=== PATIENT | female | born 1990 ===

== ENCOUNTER 2019-11-01 07:55 | Inpatient (IN) | payer OTHER ==
--- NOTE | 2019-11-01 09:09 | HP ---
Past Medical History - Admission History Source: Patient Limitations to Obtaining History: No Limitations - Past Medical History ...: 1 ...Para: 0 ...EDC by Dates: 10/29/19 - Past Surgical History Past Surgical History: Yes: None Hx Myomectomy: No Hx Transabdominal Cerclage: No - Smoking History Have you smoked in the past 12 months: No - Alcohol/Substance Use Hx Alcohol Use: No History of Substance Use: reports: None - Social History Usual Living Arrangement: Yes: With Spouse Do you think of yourself as: Straight/Heterosexual ADL: Independent History of Recent Travel: No Home Medications - Allergies Allergies/Adverse Reactions: Allergies Allergy/AdvReac Type Severity Reaction Status Date / Time No Known Allergies Allergy Verified 11/01/19 09:07 Family Medical History Family History: Denies Review of Systems - Review of Systems Constitutional: reports: No Symptoms Eyes: reports: No Symptoms HENT: reports: No Symptoms Neck: reports: No Symptoms Cardiovascular: reports: No Symptoms Respiratory: reports: No Symptoms Gastrointestinal: reports: No Symptoms Genitourinary: reports: No Symptoms Breasts: reports: No Symptoms Reported Musculoskeletal: reports: No Symptoms Integumentary: reports: No Symptoms Neurological: reports: No Symptoms Endocrine: reports: No Symptoms Hematology/Lymphatic: reports: No Symptoms Psychiatric: reports: No Symptoms Physical Exam - Maternity Constitutional: Yes: Well Nourished, No Distress, Calm Eyes: Yes: WNL, Conjunctiva Clear, EOM Intact HENT: Yes: WNL, Atraumatic, Normocephalic Neck: Yes: WNL, Supple, Trachea Midline Cardiovascular: Yes: WNL, Regular Rate and Rhythm Breast(s): Yes: WNL - Abdominal Exam/OB Number of Fetuses: Single Presentation: Vertex Contractions: No Intensity: Unaware Monitor Mode: External Category: I Accelerations: Uniform Decelerations: None - Vaginal Exam/OB Vaginal Bleeding: No Speculum Exam: No Amniotic Membrane Status: Intact Presentation: Vertex/Position Station: -2 - Physical Exam Musculoskeletal: Yes: WNL Extremities: Yes: WNL Edema: No Integumentary: Yes: WNL ...Motor Strength: WNL Psychiatric: Yes: WNL Assessment/Plan IUP at 40 + weeks plan induction of labor
[2019-11-01] MEDS ORDERED: ELECTROLYTE-148 SOLN 1,000 ML IV SCH (09:15)
[2019-11-01 09:32] VITALS: BMI 37.4
[2019-11-01] MEDS ORDERED: DINOPROSTONE 10 MG VAGINAL SUPPOSITORY VG ONE (09:45)
[2019-11-01 10:39] LABS: BASO % 0.3 % (0-2.0); EOS % 1.9 % (0-4.5); HEMATOCRIT 38.3 % (32.4-45.2); HEMOGLOBIN 13.2 GM/dL (10.7-15.3); LYMPH % 26.4 % (8-40); MCH 31.9 pg (25.7-33.7); MCHC 34.4 g/dl (32.0-36.0); MEAN CELL VOLUME 92.8 fl (80-96); MEAN PLT VOLUME 7.2 fl (7.5-11.1); MONO % 9.2 % (3.8-10.2); NEUT % 62.2 % (42.8-82.8); PLATELET COUNT 469 K/MM3 (134-434); RBC 4.12 M/mm3 (3.60-5.2); RDW 13.4 % (11.6-15.6); WHITE BLOOD COUNT 8.4 K/mm3 (4.0-10.0)
[2019-11-01 10:49] LABS: INR 0.93 (0.83-1.09)
[2019-11-01 10:52] LABS: ACTIVATED PTT 26.8 SECONDS (25.2-36.5)
[2019-11-01 11:05] LABS: BLOOD UREA NITROGEN 10.7 mg/dL (7-18); CALCIUM 8.9 mg/dL (8.5-10.1); CREATININE 0.6 mg/dL (0.55-1.3); POTASSIUM 4.1 mmol/L (3.5-5.1)
[2019-11-01] MEDS ORDERED: AMPICILLIN SODIUM 2 GM VIAL ONE (13:24)
[2019-11-01] MEDS ORDERED: AMPICILLIN - 2 GM in SODIUM CHLORIDE 100 ML IVPB ONE (14:00)
[2019-11-01] MEDS ORDERED: OXYTOCIN 30 UNITS in 0.9% NS 30 UNIT/500 ML INFUS.BAG IVPB ONE (14:22)
[2019-11-01] MEDS ORDERED: PROMETHAZINE HCL 25 MG/1 ML VIAL IVPB ONE (14:25)
[2019-11-01] MEDS ORDERED: BUTORPHANOL TARTRATE 1 MG/ML VIAL IVPB ONE (14:25)
--- NOTE | 2019-11-01 14:26 | PN ---
Progress Note (short form) - Note Progress Note: cervix 1-2 cm 80% effaced vertex -2 AROM tracing reactive with good variability accelerations no decelerations category I at 140 bpm . plan oxytocin augmentation.
[2019-11-01] MEDS ORDERED: OXYTOCIN 30 UNITS in 0.9% NS 30 UNIT/500 ML INFUS.BAG IVPB SCH (14:30)
[2019-11-01] MEDS ORDERED: AMPICILLIN SODIUM 1 GM VIAL ONE ×2 (17:11→21:20)
[2019-11-01] MEDS: AMPICILLIN - 1 GM in SODIUM CHLORIDE 100 ML IVPB SCH ×2 (17:29→21:30)
[2019-11-01] MEDS ORDERED: PCA PUMP NR ONE ×2 (17:42→23:46)
[2019-11-01] MEDS ORDERED: FENTANYL/BUPIVACAINE/NS/PF - PCEA - 50 ML DISP.SYRIN EP ONE (17:43)
[2019-11-01] MEDS ORDERED: NALOXONE HCL 0.4 MG/ML VIAL IVPUSH PRN (18:35)
[2019-11-01] MEDS ORDERED: BUPIVACAINE HCL/PF 0.25% (2.5MG/ML) 10 ML VIAL ONE (18:37)
[2019-11-01] MEDS ORDERED: FENTANYL/BUPIVACAINE/NS/PF - PCEA - 50 ML DISP.SYRIN EP SCH (18:45)
[2019-11-01] MEDS ORDERED: OXYTOCIN 20 UNITS in 0.9% NS 20 UNIT/1,000 ML INFUS.BAG IV ONE ×2 (21:51→22:57)
[2019-11-01] MEDS ORDERED: WITCH HAZEL 50% (TUCKS) 40 PAD/JAR PAD TP PRN (22:28)
[2019-11-01] MEDS ORDERED: METHYLERGONOVINE MALEATE 0.2 MG/1 ML AMP IM PRN (22:28)
[2019-11-01] MEDS ORDERED: BENZOCAINE 20% 57 GM BOTTLE TP PRN (22:28)
[2019-11-01] MEDS ORDERED: BISACODYL 10 MG SUPP.RECT RC PRN (22:28)
[2019-11-01] MEDS ORDERED: BENZOCAINE 28 GM HEMORRHOIDAL OINTMENT TP PRN (22:28)
--- NOTE | 2019-11-01 22:28 | PN ---
Delivery - Delivery Vaginal Delivery: No Problems Type of Anesthesia: Local, Epidural Episiotomy/Laceration: 2nd degree EBL (cc): 300 Delivery, Single - [place] Feeding Plan Initial Plan: Elected not to breastfeed exclusively throughout hospitalization
[2019-11-01] MEDS ORDERED: OXYTOCIN 20 UNITS in 0.9% NS 20 UNIT/1,000 ML INFUS.BAG IV SCH (22:30)
[2019-11-01] MEDS ORDERED: IBUPROFEN 600 MG TABLET (FP) PO ONE (23:35)
[2019-11-01] MEDS ORDERED: ACETAMINOPHEN 325 MG TABLET (FP) ONE (23:36)
[2019-11-02] MEDS: ACETAMINOPHEN 325 MG TABLET (FP) PO PRN ×3 (05:10→21:39)
[2019-11-02] MEDS: IBUPROFEN 600 MG TABLET (FP) PO PRN ×3 (05:11→21:39)
[2019-11-02] MEDS: AMPICILLIN - 1 GM in SODIUM CHLORIDE 100 ML IVPB SCH (07:30)
[2019-11-02 08:32] LABS: BASO % 0.1 % (0-2.0); EOS % 0.2 % (0-4.5); HEMATOCRIT 34.8 % (32.4-45.2); HEMOGLOBIN 11.9 GM/dL (10.7-15.3); LYMPH % 13.2 % (8-40); MCHC 34.4 g/dl (32.0-36.0); MEAN CELL VOLUME 93.1 fl (80-96); MEAN PLT VOLUME 7.2 fl (7.5-11.1); MONO % 7.3 % (3.8-10.2); NEUT % 79.2 % (42.8-82.8); PLATELET COUNT 420 K/MM3 (134-434); RBC 3.73 M/mm3 (3.60-5.2); RDW 13.4 % (11.6-15.6); WHITE BLOOD COUNT 17.3 K/mm3 (4.0-10.0)
--- NOTE | 2019-11-02 09:06 | PN ---
Progress Note (short form) - Note Progress Note: pt. overall feels well. tolerating diet, ambulating. states has some soreness in lower back and would like an ice pack. vss - af abd: soft, nt, nd, fundus firm back : no abnormalities noted. no cva tenderness. ve: intact, min lochia ext: no calf tenderness b/l a/p ppd 1 s/p pt. stable analgesia prn ice pack to back check cbc this am
[2019-11-02] MEDS: PRENATAL VITAMINS W/ FOLIC ACID TABLET (FP) PO SCH (09:27)
[2019-11-02] MEDS: FERROUS SO4 325 MG TABLET (FP) PO SCH ×3 (09:27→17:16)
[2019-11-02] MEDS ORDERED: SENNOSIDES/DOCUSATE COMBO (SENNA PLUS) TABLET (UD) PO PRN (22:00)
[2019-11-03 08:40] LABS: BASO % 0.3 % (0-2.0); HEMATOCRIT 33.5 % (32.4-45.2); HEMOGLOBIN 11.2 GM/dL (10.7-15.3); LYMPH % 20.6 % (8-40); MCH 31.6 pg (25.7-33.7); MCHC 33.5 g/dl (32.0-36.0); MEAN CELL VOLUME 94.3 fl (80-96); MEAN PLT VOLUME 7.1 fl (7.5-11.1); MONO % 6.4 % (3.8-10.2); NEUT % 70.7 % (42.8-82.8); PLATELET COUNT 450 K/MM3 (134-434); RBC 3.56 M/mm3 (3.60-5.2); RDW 13.8 % (11.6-15.6); WHITE BLOOD COUNT 13.5 K/mm3 (4.0-10.0)
[2019-11-03] MEDS: PRENATAL VITAMINS W/ FOLIC ACID TABLET (FP) PO SCH (09:16)
[2019-11-03] MEDS: IBUPROFEN 600 MG TABLET (FP) PO PRN (09:16)
[2019-11-03] MEDS: FERROUS SO4 325 MG TABLET (FP) PO SCH ×2 (09:16→12:30)
[2019-11-03] MEDS: ACETAMINOPHEN 325 MG TABLET (FP) PO PRN (09:17)
--- NOTE | 2019-11-03 09:43 | PN ---
Progress Note (short form) - Note Progress Note: Patient without complaints, asymptomatic Vs wnl [id number] Abdomen soft- uterus well contracted Normal lochial flow no calf tenderness A/P- PPD#@ s/p vaginal delivery Discharge home with instructions
--- NOTE | 2019-11-03 09:49 | DS ---
Physical Exam-[employer] Vital Signs: Vital Signs Temperature 97.8 F 11/02/19 21:00 Pulse Rate 80 11/02/19 21:00 Respiratory Rate 18 11/02/19 21:00 Blood Pressure 101/69 11/02/19 21:00 O2 Sat by Pulse Oximetry (%) 99 11/02/19 17:00 Constitutional: Yes: Well Nourished Cardiovascular: Yes: WNL Respiratory: Yes: WNL Gastrointestinal: Yes: WNL ....Post : Yes: Uterus firm Breast(s): Yes: WNL Musculoskeletal: Yes: WNL Extremities: Yes: WNL Edema: No Labs: CBC, BMP 11/03/19 07:55 11/01/19 10:00 Delivery - Delivery Vaginal Delivery: No Problems Type of Anesthesia: Epidural Episiotomy/Laceration: 2nd degree EBL (cc): 300 Delivery, Single - Stages of Labor Date 1st Stage Initiatied: 11/01/19 Time 1st Stage Initiated: 19:00 Date 2nd Stage Initiated: 11/01/19 Time 2nd Stage Initiated: 21:46 Date of Delivery: 11/01/19 Time of Delivery: 21:15 Time Placenta Delivered: 21:20 - Condition of Infant C Programmer/Collar Stay Fuser Tender Present: No Infant Gender: Female Weight: 3.203 kg Position: OA Total Hours ROM (Hrs/Mins): 8h10m - 1 Minute Total Score: 6 5 Minutes Total Score: 9 - Feeding Plan Initial Plan: Elected not to breastfeed exclusively throughout hospitalization Remarks - Remarks Remarks: PPD#@ s/p vaginal delivery discharge home on ibuprofen and colace Discharge Summary Problems reviewed: Yes Reason For Visit: INDUCTION OF LABOR Procedures: Principal: Hospital Course: s/p vaginal delivery Plan of Treatment: Discharge home with instructions Home on Ibuprofen and colace Follow up at Dr Burton's office in 1 week and 6 weeks To ER if fever>100.4, severe vaginal bleeding any pain severe abdominal pain or any unusual symptoms No sex, nothing in vagina, no tampons, no tub baths Condition: Stable - Instructions Diet, Activity, Other Instructions: regular diet Discharge home with instructions Home on Ibuprofen and colace Follow up at Dr Burton's office in 1 week and 6 weeks To ER if fever>100.4, severe vaginal bleeding any pain severe abdominal pain or any unusual symptoms No sex, nothing in vagina, no tampons, no tub baths Disposition: HOME - Home Medications Comprehensive Discharge Medication List: Ambulatory Orders Vitamins (Sjr) - 1 tab PO DAILY 11/01/19 Prescription Drug Monitoring Program (I-STOP) results: I-STOP not reviewed
[2019-11-03] MEDS ORDERED: PATIENT'S OWN MEDICATION (NON-FORMULARY) (Prenatal Vitamins (Sjr) - 1 TAB) PO SCH (10:00)
[2019-11-03 10:14] VITALS: BP 105/70; PULSE 101; TEMP 97.9
== END 2019-11-03 13:00 | disposition home or self-care (01) | DRG 560 ==
LOC: JLDR 07:55 → J3W 11-02 01:00
PROVIDERS: ADMIT Specialist; ATTEND Specialist
PROC: 10E0XZZ Delivery of Products of Conception, External Approach (ICD-10-PCS; principal; 2019-11-01)
PROC: 10907ZC Drainage of Amniotic Fluid, Therapeutic from Products of Conception, Via Natural or Artificial Opening (ICD-10-PCS; 2019-11-01)
DX: O48.0 Post-term pregnancy (principal); O70.1 Second degree perineal laceration during delivery; Z3A.40 40 weeks gestation of pregnancy; Z37.0 Single live birth
CPT/HCPCS: 36415; 59409; 80048; 85025; 85610; 85730; 86780; 86850; 86900; 86901